=== PATIENT | female | born 1990 | race Caucasian/White ===

== ENCOUNTER 2018-04-18 19:15 | Emergency (ER) | payer MEDICAID, OTHER ==
[~2018-04-18] VITALS: Ht 157.5 cm; Wt 57.6 kg
[2018-04-18 19:32] VITALS: BP 128/89
--- NOTE | 2018-04-18 19:34 | NUR ---
TO BED # 3 AMBULATORY, REPORT GIVEN TO EMMANUEL BARAJAS
--- NOTE | 2018-04-18 19:35 | NUR ---
ASSUMED CARE OF PT AT THIS TIME. C/O RIGHT FLANK PAIN W/ 1 EPISODE N/V X 12 HOURS. PT DENIES ANY DIARRHEA, CONSTIPATION, OR URINARY COMPLAINTS. AAOX4 WITH EVEN AND STEADY GAIT; PATIENT STATES PAIN OF 9/10; VSS; PATIENT POSITIONED FOR COMFORT; HOB ELEVATED; BEDRAILS UP X2; BED DOWN. ER MD MADE AWARE OF PT STATUS. WILL CONTINUE TO MONITOR.
--- NOTE | 2018-04-18 20:34 | NUR ---
Dr. Marquis evaluating patient at bedside.
--- NOTE | 2018-04-18 20:47 | NUR ---
X-Ray at bedside.
[2018-04-18 21:03] LABS: APPEARANCE,URINE CLEAR (CLEAR); BILIRUBIN,URINE NEGATIVE (NEGATIVE); BLOOD, URINE TRACE-I (NEGATIVE); COLOR,URINE YELLOW (YELLOW); LEUKOCYTE ESTERASE ,URINE 1+ (NEGATIVE); NITRITE, URINE NEGATIVE (NEGATIVE); UGLUCOSE NEGATIVE (NEGATIVE)
[2018-04-18 21:14] LABS: RBC,URINE 3-10 (FEW) /HPF (0-5)
[2018-04-18 21:15] LABS: WBC,URINE 6-15 (FEW) /HPF (0-5)
--- NOTE | 2018-04-18 21:18 | NUR ---
PT RETURN FROM CT
[2018-04-18 22:15] VITALS: BP 118/84
--- NOTE | 2018-04-18 22:15 | NUR ---
Patient discharged with v/s stable. Written and verbal after care instructions given and explained. Patient alert, oriented and verbalized understanding of instructions. Ambulatory with steady gait. All questions addressed prior to discharge. ID band removed. Patient advised to follow up with PMD. Rx of MOTRIN, LACTULOSE, ZOFRAN, AND MACROBID given. Patient educated on indication of medication including possible reaction and side effects. Opportunity to ask questions provided and answered.
== END 2018-04-18 22:15 | disposition home or self-care (01) ==
LOC: MED 19:15
DX: N39.0 Urinary tract infection, site not specified (principal); R11.0 Nausea; R68.83 Chills (without fever); Z87.442 Personal history of urinary calculi
CPT/HCPCS: 74018; 74176; 81001; 81025; 87086; 99285; Q0092

== ENCOUNTER 2018-12-24 13:19 | Emergency (ER) | payer MEDICAID, OTHER ==
[~2018-12-24] VITALS: Ht 157.5 cm; Wt 58.1 kg
[2018-12-24 13:21] VITALS: BP 134/86
--- NOTE | 2018-12-24 13:30 | NUR ---
PT AMB TO BED 9
--- NOTE | 2018-12-24 13:36 | NUR ---
PATIENT PRESENTS TO ED WITH c/o lower abdominal discomfort radiating to lower back; burning pain upon voiding x 3 days--- . DENIES N/V/D; SKIN IS PINK/WARM/DRY; AAOX4 WITH EVEN AND STEADY GAIT; LUNGS CLEAR BL; HR EVEN AND REGULAR; PT DENIES ANY FEVER, CP, SOB, OR COUGH AT THIS TIME; PATIENT STATES PAIN OF 6/10 AT THIS TIME; VSS; PATIENT POSITIONED FOR COMFORT; HOB ELEVATED; BEDRAILS UP X2; BED DOWN. ER MD MADE AWARE OF PT STATUS.
[2018-12-24 13:50] LABS: APPEARANCE,URINE HAZY (CLEAR); BILIRUBIN,URINE NEGATIVE (NEGATIVE); BLOOD, URINE 1+ (NEGATIVE); COLOR,URINE YELLOW (YELLOW); LEUKOCYTE ESTERASE ,URINE 1+ (NEGATIVE); NITRITE, URINE NEGATIVE (NEGATIVE); UGLUCOSE NEGATIVE (NEGATIVE)
[2018-12-24 14:00] LABS: RBC,URINE 11-20 (MOD) /HPF (0-5)
[2018-12-24 14:01] LABS: WBC,URINE 16-25 (MOD) /HPF (0-5)
[2018-12-24 14:41] VITALS: BP 138/88
--- NOTE | 2018-12-24 14:41 | NUR ---
Patient discharged with v/s stable. Written and verbal after care instructions given and explained. Patient alert, oriented and verbalized understanding of instructions. Ambulatory with steady gait. All questions addressed prior to discharge. ID band removed. Patient advised to follow up with PMD. Rx of CIPROFLOXACIN 500MG AND PHENAZOPYRIDINE 200MG given. Patient educated on indication of medication including possible reaction and side effects. Opportunity to ask questions provided and answered.
== END 2018-12-24 14:41 | disposition home or self-care (01) ==
LOC: MED 13:19
DX: N39.0 Urinary tract infection, site not specified (principal); Z87.442 Personal history of urinary calculi
CPT/HCPCS: 81001; 81025; 87086; 87186; 99283

== ENCOUNTER 2019-03-06 10:38 | Emergency (ER) | payer OTHER ==
[~2019-03-06] VITALS: Ht 157.5 cm; Wt 58.1 kg
[2019-03-06 10:44] VITALS: BP 121/75
--- NOTE | 2019-03-06 11:00 | NUR ---
C/O SUPRIPUPIC TENDERNESS, BILAT FLANK PAIN AND DYSURIA/BURNING WHILE URINATING X2 DAYS. PT DENIES FEVER, N/V. PT STATES SHE HAS HAD MULTIPLE UTIS AND SHE THINKS THAT WHAT THE PAIN IS FROM. BED IN LOW POSITION, SIDE RAIL UP X1, PT PROVIDED URINE SAMPLE.
--- NOTE | 2019-03-06 11:22 | NUR ---
PT AMBULATED TO BED 12 AT THIS TIME
[2019-03-06 11:27] LABS: APPEARANCE,URINE CLOUDY (CLEAR); BILIRUBIN,URINE NEGATIVE (NEGATIVE); BLOOD, URINE TRACE-L (NEGATIVE); COLOR,URINE YELLOW (YELLOW); LEUKOCYTE ESTERASE ,URINE 2+ (NEGATIVE); NITRITE, URINE NEGATIVE (NEGATIVE); PH,URINE 6.5 (5.0-9.0); UGLUCOSE NEGATIVE (NEGATIVE)
[2019-03-06 11:56] LABS: RBC,URINE 0-5 /HPF (0-5); WBC,URINE 20-60 /HPF (0-5)
[2019-03-06 12:33] VITALS: BP 121/75
--- NOTE | 2019-03-06 12:33 | NUR ---
Patient discharged with v/s stable. Written and verbal after care instructions given and explained. Patient alert, oriented and verbalized understanding of instructions. Ambulatory with steady gait. All questions addressed prior to discharge. ID band removed. Patient advised to follow up with PMD. Rx of KEFLEX/ PYRIDIUM given. Patient educated on indication of medication including possible reaction and side effects. Opportunity to ask questions provided and answered.
== END 2019-03-06 12:32 | disposition home or self-care (01) ==
LOC: MED 10:38
DX: N39.0 Urinary tract infection, site not specified (principal); Z87.442 Personal history of urinary calculi
CPT/HCPCS: 81001; 81025; 87086; 87186; 99283

== ENCOUNTER 2019-03-20 08:33 | Emergency (ER) | payer OTHER ==
[~2019-03-20] VITALS: Ht 157.5 cm; Wt 58.1 kg
[2019-03-20 08:40] VITALS: BP 112/76
--- NOTE | 2019-03-20 08:50 | NUR ---
C/O BURNING, DYSURIA, AND ABD PAIN X 5 DAYS. PT WAS HERE 10 DAYS FOR THE SAME SYMPTOMS. ALSO C/O NAUSEA, VOMITTED ONE TIME THREE DAYS AGO. NO BLOODY EMESIS. 8/10 HX: NONE . DENIES DIARRHEA; SKIN IS PINK/WARM/DRY; AAOX4 WITH EVEN AND STEADY GAIT; LUNGS CLEAR BL; HR EVEN AND REGULAR; PT DENIES ANY FEVER, CP, SOB, OR COUGH AT THIS TIME; PATIENT STATES PAIN OF 8/10 AT THIS TIME; VSS; PATIENT POSITIONED FOR COMFORT; HOB ELEVATED; BEDRAILS UP X2; BED DOWN. ER MD MADE AWARE OF PT STATUS.
[2019-03-20 09:16] LABS: APPEARANCE,URINE CLOUDY (CLEAR); BILIRUBIN,URINE NEGATIVE (NEGATIVE); BLOOD, URINE 1+ (NEGATIVE); COLOR,URINE YELLOW (YELLOW); LEUKOCYTE ESTERASE ,URINE 3+ (NEGATIVE); NITRITE, URINE NEGATIVE (NEGATIVE); PH,URINE 5.5 (5.0-9.0); UGLUCOSE NEGATIVE (NEGATIVE)
[2019-03-20 09:17] VITALS: BP 115/75
[2019-03-20 09:53] LABS: RBC,URINE 0-5 /HPF (0-5)
[2019-03-22 06:12] LABS: CHLAMYDIA TRACHOMATIS AMP DNA Negative (Negative)
== END 2019-03-20 09:17 | disposition home or self-care (01) ==
LOC: MED 08:33
DX: N39.0 Urinary tract infection, site not specified (principal); R11.10 Vomiting, unspecified; Z87.442 Personal history of urinary calculi
CPT/HCPCS: 36415; 81001; 81025; 87086; 87491; 99283

== ENCOUNTER 2019-05-11 08:14 | Emergency (ER) | payer OTHER ==
[~2019-05-11] VITALS: Ht 157.5 cm; Wt 57.2 kg
[2019-05-11 08:20] VITALS: BP 110/68
[2019-05-11] MEDS ORDERED: PHENAZOPYRIDINE 100 MG TAB PO ONE (09:10)
[2019-05-11] MEDS ORDERED: cefTRIAXone 1,000 MG in LIDOCAINE MPF 1% - 5 mL VIAL 2.1 ML IM ONE (09:10)
[2019-05-11] MEDS ORDERED: HYDROcodone/APAP 5/325 MG 1 TAB TAB PO ONE (09:10)
[2019-05-11 09:49] VITALS: BP 115/70
--- NOTE | 2019-05-11 09:50 | NUR ---
Patient discharged with v/s stable. Written and verbal after care instructions given and explained. Patient alert, oriented and verbalized understanding of instructions. Ambulatory with steady gait. All questions addressed prior to discharge. ID band removed. Patient advised to follow up with PMD. Rx of cipro & naprosyn given. Patient educated on indication of medication including possible reaction and side effects. Opportunity to ask questions provided and answered.
== END 2019-05-11 09:50 | disposition home or self-care (01) ==
LOC: MED 08:14
DX: N39.0 Urinary tract infection, site not specified (principal); Z87.442 Personal history of urinary calculi
CPT/HCPCS: 81002; 81025; 96372; 99283; J0696; J2001